=== PATIENT | male | born 1970 | race Caucasian/White ===

== ENCOUNTER 2017-03-13 07:41 | Outpatient (CLI) | payer OTHER ==
--- NOTE | 2017-03-13 11:29 | CT ---
CT OF ABDOMEN AND PELVIS WITH AND WITHOUT CONTRAST: INDICATION: Left lower quadrant pain. FINDINGS: Noncontrast imaging reveals a punctate nonobstructing right nephrolithiasis. There is a moderate-si zed exophytic cyst emanating from the anterolateral right kidney. There is an additional punctate h ypodensity of the right kidney, too small to further characterize. No focal hepatic or splenic lesi on. No acute peripancreatic inflammation. Adrenal glands are unremarkable. The contrast-opacified small bowel is normal in caliber. There is moderate retained fecal material of the colon. Wall prominence of the rectosigmoid colon is present which may relate to underdistens ion, although is incompletely assessed. No acute abnormalities of the osseous structures. There is incompletely assessed nodularity of the bilateral lung base pulmonary parenchyma. IMPRESSION: 1. Pulmonary nodules at the lung base. Recommend followup with dedicated CT thorax. 2. Nonobstructing right nephrolithiasis 3. Right renal cyst. 4. Wall prominence of the rectosigmoid colon which may be on the basis of underdistension, although underlying pathology cannot be entirely excluded. Correlation with age-appropriate colonic strandi ng may prove useful to further characterize. CODE T POS: TAMIR
[2017-03-13] MEDS ORDERED: Iopamidol 370 76% 100 ML VIAL ONE (13:48)
== END 2017-03-13 07:42 | disposition home or self-care (01) ==
LOC: CT 07:41
PROVIDERS: ATTEND Family Medicine
DX: R10.32 Left lower quadrant pain (principal); Z87.19 Personal history of other diseases of the digestive system; Z80.0 Family history of malignant neoplasm of digestive organs; N20.0 Calculus of kidney; N28.1 Cyst of kidney, acquired; R91.8 Other nonspecific abnormal finding of lung field
CPT/HCPCS: 74178

== ENCOUNTER 2021-05-06 10:50 | Outpatient (CLI) | payer BC | END 2021-05-06 10:51 | disposition home or self-care (01) | LOC: BICRAD 10:50 | PROVIDERS: ATTEND Internal Medicine Cardiovascular Disease | DX: R06.00 Dyspnea, unspecified (principal) | CPT/HCPCS: 71046 ==

== ENCOUNTER 2021-09-24 07:31 | Outpatient (CLI) | payer BC ==
[2021-09-24] MEDS ORDERED: Iopamidol 370 76% 100 ML VIAL ONE (08:52)
== END 2021-09-24 07:32 | disposition home or self-care (01) ==
LOC: CT 07:31
PROVIDERS: ATTEND Family Medicine
DX: R10.9 Unspecified abdominal pain (principal); R20.0 Anesthesia of skin; M47.816 Spondylosis without myelopathy or radiculopathy, lumbar region; M47.817 Spondylosis without myelopathy or radiculopathy, lumbosacral region; M43.16 Spondylolisthesis, lumbar region; M43.17 Spondylolisthesis, lumbosacral region; M48.061 Spinal stenosis, lumbar region without neurogenic claudication
CPT/HCPCS: 72131; 74177; Q9967